=== PATIENT | female | born 1970 | race Hispanic/Latino ===

== ENCOUNTER 2017-10-29 05:30 | Day surgery (SDC) | payer MEDICAID ==
[2017-10-29] MEDS ORDERED: SODIUM CHLORIDE 0.9% 1000ML 1,000 ML IV ONE (06:03)
[2017-10-29] MEDS ORDERED: GLYCOPYRROLATE 0.2 MG/ML 5 ML VIAL ONE (08:17)
[2017-10-29] MEDS ORDERED: LIDOCAINE HCL 2% 20ML ONE (08:17)
[2017-10-29] MEDS ORDERED: PROPOFOL 10 MG/ML 20ML VIAL IV ONE (08:17)
== END 2017-10-29 08:56 | disposition home or self-care (01) ==
LOC: DAH 05:30 → ENDO 05:30
PROVIDERS: ATTEND Internal Medicine
DX: K29.50 Unspecified chronic gastritis without bleeding (principal); B96.81 Helicobacter pylori [H. pylori] as the cause of diseases classified elsewhere; E78.5 Hyperlipidemia, unspecified; E78.00 Pure hypercholesterolemia, unspecified; E66.9 Obesity, unspecified; K59.09 Other constipation; Z98.890 Other specified postprocedural states; Z90.710 Acquired absence of both cervix and uterus; K21.0 Gastro-esophageal reflux disease with esophagitis; Z68.39 Body mass index [BMI] 39.0-39.9, adult
CPT/HCPCS: 43239; 88305; 88312; A4606; J2704; J3490 ×2; J7030

== ENCOUNTER 2017-12-08 08:46 | Day surgery (SDC) | payer MEDICAID ==
[2017-12-08] VITALS (10 sets, daily range): BP systolic 115–140; BP diastolic 59–69
[2017-12-08 09:29] LABS: INR 0.94 (0.85-1.15); PARTIAL THROMBOPLASTIN TIME 24.8 SEC (26.3-35.5); PROTHROMBIN TIME 9.9 SEC (9.6-11.6)
[2017-12-08] MEDS ORDERED: SODIUM CHLORIDE 0.9% 1000ML 1,000 ML IV ONE (09:41)
[2017-12-08] MEDS ORDERED: MIDAZOLAM HCL 1 MG/ML 2ML VIAL ONE (10:53)
[2017-12-08] MEDS ORDERED: FENTANYL CITRATE PF 50 MCG/1 ML 2ML VIAL ONE (10:53)
[2017-12-08] MEDS ORDERED: ACETAMINOPHEN-CODEINE 300/30MG TAB PO PRN ×2 (11:30)
== END 2017-12-08 15:55 | disposition home or self-care (01) ==
LOC: DAH 08:46 → RAH 08:46 → EDSTATUS 10:00 → RAH 15:55
PROVIDERS: ATTEND Internal Medicine Gastroenterology
DX: K75.81 Nonalcoholic steatohepatitis (NASH) (principal); K74.0 Hepatic fibrosis; R79.89 Other specified abnormal findings of blood chemistry; E78.5 Hyperlipidemia, unspecified; E66.9 Obesity, unspecified; Z90.710 Acquired absence of both cervix and uterus; Z68.38 Body mass index [BMI] 38.0-38.9, adult; Z79.899 Other long term (current) drug therapy; K29.70 Gastritis, unspecified, without bleeding; K21.9 Gastro-esophageal reflux disease without esophagitis
CPT/HCPCS: 36415; 47000; 85610; 85730; J2250; J3010; J7030